=== PATIENT | male | born 1995 | race Caucasian/White ===

== ENCOUNTER 2022-01-19 09:30 | Emergency (ER) | payer MEDICAID ==
[2022-01-19] MEDS ORDERED: Ketorolac 30 MG/ML SDV IVPUSH ONE (10:32)
[2022-01-19] MEDS ORDERED: Ondansetron 4 MG/2 ML SDV IVPUSH ONE (10:33)
[2022-01-19] MEDS ORDERED: Sodium Chloride 0.9% 10 ML Syringe FLUSH PRN (10:33)
[2022-01-19 11:20] LABS: ESTIMATED GFR 84 mL/min (>60)
[2022-01-19] MEDS ORDERED: Iopamidol 612 MG/ML 100 ML Bottle IV ONE (11:26)
== END 2022-01-19 13:19 | disposition home or self-care (01) ==
LOC: JP.ED 09:30
DX: N12 Tubulo-interstitial nephritis, not specified as acute or chronic (principal); Z88.0 Allergy status to penicillin
CPT/HCPCS: 36415; 74177; 80053; 81001; 83605; 83690; 85025; 96374; 96375; 99284; J1885; J2405; J3490; Q9967

== ENCOUNTER 2023-07-18 06:53 | Emergency (ER) | payer OTHER, MEDICAID ==
[2023-07-18 09:35] LABS: BASOPHILS ABSOLUTE AUTO 0.09 K/uL (0.00-0.10); BASOPHILS PERCENT AUTO 0.6 % (0.1-1.3); EOSINOPHILS ABSOLUTE AUTO 0.45 K/uL (0.00-0.40); EOSINOPHILS PERCENT AUTO 2.8 % (0.0-5.4); HEMATOCRIT 43.5 % (38.4-49.7); HEMOGLOBIN 15.1 g/dL (12.9-16.9); IMMATURE GRAN ABSOLUTE AUTO 0.09 K/uL (0.00-0.23); IMMATURE GRAN PERCENT AUTO 0.6 % (0.0-0.7); LYMPHOCYTES ABSOLUTE AUTO 1.87 K/uL (0.8-3.3); LYMPHOCYTES PERCENT AUTO 11.6 % (11.4-47.7); MEAN CORPUSCULAR HEMOGLOBIN 30.8 pg (31.6-35.5); MEAN CORPUSCULAR HGB CONC 34.7 g/dL (31.6-35.5); MEAN CORPUSCULAR VOLUME 88.6 fL (81.4-99.0); MONOCYTES ABSOLUTE AUTO 0.89 K/uL (0.20-0.90); MONOCYTES PERCENT AUTO 5.5 % (3.3-12.6); NEUTROPHILS ABSOLUTE AUTO 12.73 K/uL (1.0-7.6); NEUTROPHILS PERCENT AUTO 78.9 % (40.0-78.1); PLATELET COUNT,PLT 291 K/uL (130-375); RED BLOOD CELL COUNT 4.91 M/uL (4.14-5.76); WHITE BLOOD CELL COUNT,WBC 16.1 K/uL (3.2-11.0)
[2023-07-18 09:50] LABS: ANION GAP 13.2 mmol/L (5.0-14.0); CALCIUM 9.4 mg/dL (8.5-10.1); CREATININE 0.9 mg/dL (0.8-1.3); EST CRCL DRUG DOSING (CG) 131.73 mL/min; POTASSIUM,K 4.2 mmol/L (3.6-5.2)
[2023-07-18] MEDS: Sodium Chloride 0.9% 10 ML Syringe FLUSH PRN ×2 (10:02→10:58)
[2023-07-18] MEDS: Iopamidol 612 MG/ML 100 ML Bottle IV PRN (10:02)
[2023-07-18] MEDS: Sodium Chloride 0.9% 80 ML IV SCH (10:02)
== END 2023-07-18 11:41 | disposition home or self-care (01) ==
LOC: JP.ED 06:53
DX: S42.025A Nondisplaced fracture of shaft of left clavicle, initial encounter for closed fracture (principal); S42.122A Displaced fracture of acromial process, left shoulder, initial encounter for closed fracture; Z88.0 Allergy status to penicillin; V47.5XXA Car driver injured in collision with fixed or stationary object in traffic accident, initial encounter
CPT/HCPCS: 36415; 71260; 73030; 80048; 85025; 99284; J3490; Q9967